=== PATIENT | male | born 1955 | race Caucasian/White ===

== ENCOUNTER 2019-05-01 00:27 | Day surgery (SDC) | payer MEDICARE, SELFPAY ==
[2019-04-24 12:51] VITALS: BMI 33.2
[2019-05-01 06:58] LABS: Glucose Point of Care 110 (65-105)
[2019-05-01] MEDS: LACTATED RINGERS 1,000 ML 150 ML IV CONT (07:00)
[2019-05-01 07:05] VITALS: BP 144/65; PULSE 51; RESP 16; TEMP 36.4; O2SAT 97; BMI 32.2
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
--- NOTE | 2019-05-01 07:23 | WPDGICN ---
Assessment and Plan Additional Plan This is a 63-year-old white male patient seen in evaluation at the request of Dr. Mahamed Petty. Patient presents for screening colonoscopy. In the past he has had colon polyps. He states his current weight appetite bowel movements are normal. He denies any blood in his stools. He denies abdominal pain. Family history is noncontributory. Past medical history is significant for hypertension. Gout. Chronic pain after a trauma. Hypertension. Medications include allopurinol. Amlodipine. Hydralazine. Diazepam. Hydrocortisone. Lisinopril. Hydrochlorothiazide. Metformin. Trazodone. Pregabalin. He has no stated drug allergies. Physical exam reveals him to be alert. Vital signs stable. HEENT exam unremarkable. Lungs are clear to auscultation and percussion. Heart is without murmur or extra sounds. Abdominal exam bowel sounds are present soft nontender with no hepatosplenomegaly. Digital external rectal exam is normal. Impression 1. Personal history of colon polyps. Past medical history of diabetes hypertension chronic pain gout all appear stable at this time Plan is for colonoscopy. Further recommendations may be given after endoscopy. GI Consult Note Consult date/time: 05/01/19 07:23 HPI: Zaid Zamarripa is a 63 year old male [facility] Past Medical History Medical History (Updated 05/01/19 @ 07:09 by Pradeep Beavers MD) Chronic pain due to injury Conductive hearing loss in left ear Head injury Hypertension Sleep apnea Surgical History Surgical History (Updated 03/27/19 @ 09:20 by Sarah Joe CMA) History of sinus surgery (~10/31/05) Family History Family History (Updated 08/14/18 @ 11:38 by DOCTOR UNKNOWN) Mother Patient's mother is in good health Family history of lung cancer Father Family history of cardiovascular disease Acute myocardial infarction Grandparent Diabetes mellitus Other Family history of malignant neoplasm of testis Social History Social History Smoking status: Never smoker Alcohol intake: current Meds Home Medications and Allergies Home Medications Medication Instructions Recorded Confirmed Type allopurinol 300 mg tablet 300 mg PO DAILY 03/27/19 04/24/19 History amlodipine 5 mg tablet 5 mg PO BID 03/27/19 04/24/19 History cyanocobalamin (vitamin B-12) 1,000 mcg PO DAILY 03/27/19 04/24/19 History 1,000 mcg capsule diazepam 10 mg tablet 5 mg PO HS PRN tablet 03/27/19 04/24/19 History hydrochlorothiazide 25 mg tablet 25 mg PO QAM 03/27/19 04/24/19 History multivitamin 1 tablet PO DAILY 03/27/19 04/24/19 History hydrocodone 5 mg-acetaminophen 325 1 tablet PO Q6H PRN #90 tablet 04/04/19 04/24/19 Rx mg tablet cholecalciferol (vitamin D3) 2,000 unit PO DAILY 04/24/19 04/24/19 History [Vitamin D3] hydralazine 25 mg PO BID 04/24/19 04/24/19 History lisinopril 40 mg PO QAM 04/24/19 04/24/19 History metformin 500 mg PO HS 04/24/19 04/24/19 History pregabalin 150 mg PO QAM 04/24/19 04/24/19 History trazodone 100 mg PO HS 04/24/19 04/24/19 History Allergies Allergy/AdvReac Type Severity Reaction Status Date / Time No Known Allergies Allergy Verified 05/01/19 07:02 Vital Signs Vital Signs - 24 hr 05/01/19 07:05 Temperature 36.4 C L Pulse Rate 51 L Respiratory Rate 16 Blood Pressure 144/65 H Pulse Oximetry 97
[2019-05-01 07:47] VITALS: BP 125/67; PULSE 50; RESP 15; O2SAT 97
[2019-05-01 07:57] VITALS: BP 123/68; PULSE 50; RESP 18; O2SAT 97
[2019-05-01 08:07] VITALS: BP 126/68; PULSE 50; RESP 16; O2SAT 97
== END 2019-05-01 08:16 | disposition home or self-care (01) ==
PROVIDERS: PCP Family Medicine; Visit Provider Internal Medicine Gastroenterology
PROC: 0DJD8ZZ Inspection of Lower Intestinal Tract, Via Natural or Artificial Opening Endoscopic (ICD-10-PCS; CPT 45378; principal; 2019-05-01 07:30)
DX: Z12.11 Encounter for screening for malignant neoplasm of colon (principal); K57.30 Diverticulosis of large intestine without perforation or abscess without bleeding; K64.8 Other hemorrhoids; Z86.010 Personal history of colon polyps; I10 Essential (primary) hypertension; E11.9 Type 2 diabetes mellitus without complications; M10.9 Gout, unspecified; G89.29 Other chronic pain; G47.30 Sleep apnea, unspecified; Z79.84 Long term (current) use of oral hypoglycemic drugs
CPT/HCPCS: G0105; J2704; J7120

== ENCOUNTER 2019-06-11 12:59 | Outpatient (CLI) | payer MEDICARE, SELFPAY ==
--- NOTE | 2019-06-11 13:04 | ECG_ITS ---
Measurements Intervals [place] Rate: 49 P: 66 IA: 171 QRS: 11 QRSD: 109 T: 32 QT: 423 QTc: 383 Interpretive Statements SINUS BRADYCARDIA BORDERLINE R WAVE PROGRESSION, ANTERIOR LEADS BASELINE ARTIFACT- I, III, AVR, AVL, AVF ABNORMAL ECG Electronically Signed On 06-11-2019 13:29:42 CDT by Luke Lazcano D.O.
[2019-06-11 13:40] LABS: Blood Urea Nitrogen 14 mg/dL (9-20); Carbon Dioxide 29 mmol/L (22-30); Chloride 104 mmol/L (98-107); Estimated Glomerular Filt Rate > 60; Glucose 137 mg/dL (75-110); Sodium 139 mmol/L (137-145)
== END 2019-06-11 13:00 | disposition home or self-care (01) ==
LOC: ANHSURGERY 13:04
PROVIDERS: Anesthesiology; PCP Family Medicine; Visit Provider Surgery
DX: Z01.818 Encounter for other preprocedural examination (principal); E11.9 Type 2 diabetes mellitus without complications; I10 Essential (primary) hypertension; R94.31 Abnormal electrocardiogram [ECG] [EKG]
CPT/HCPCS: 36415; 80048; 93005

== ENCOUNTER 2020-06-16 10:14 | Outpatient (CLI) | payer MEDICARE, SELFPAY ==
--- NOTE | 2020-06-16 10:20 | ECG_ITS ---
Measurements Intervals [place] Rate: 56 P: 75 DC: 173 QRS: 12 QRSD: 115 T: 28 QT: 417 QTc: 405 Interpretive Statements SINUS BRADYCARDIA INTRAVENTRICULAR CONDUCTION DELAY POOR R WAVE PROGRESSION, ANTERIOR LEADS BASELINE ARTIFACT- I, III, AVL, AVF BORDERLINE ECG Electronically Signed On 06-16-2020 10:57:20 CDT by Luke Lazcano D.O.
[2020-06-16 10:51] LABS: Anion Gap 3 mmol/L (8-16); Blood Urea Nitrogen 13 mg/dL (9-20); Calcium 9.4 mg/dL (8.4-10.2); Carbon Dioxide 30 mmol/L (22-30); Chloride 103 mmol/L (98-107); Estimated Glomerular Filt Rate > 60; Glucose 130 mg/dL (75-110); Sodium 136 mmol/L (137-145)
== END 2020-06-16 10:15 | disposition home or self-care (01) ==
LOC: ANHSURGERY 10:18
PROVIDERS: Anesthesiology; PCP Family Medicine; Visit Provider Surgery
DX: Z01.818 Encounter for other preprocedural examination (principal); I10 Essential (primary) hypertension; E11.9 Type 2 diabetes mellitus without complications; R00.1 Bradycardia, unspecified; I45.4 Nonspecific intraventricular block
CPT/HCPCS: 36415; 80048; 93005

== ENCOUNTER → 2020-06-19 01:21 | Outpatient (CLI) | payer MEDICARE, SELFPAY ==
[2020-06-19 19:13] LABS: SARS-CoV-2 RNA PCR Negative
== END ==
PROVIDERS: PCP Family Medicine; Visit Provider Surgery
DX: Z01.812 Encounter for preprocedural laboratory examination (principal); Z20.822 Contact with and (suspected) exposure to COVID-19
CPT/HCPCS: C9803; U0003; U0005

== ENCOUNTER 2020-06-23 03:08 | Day surgery (SDC) | payer MEDICARE, SELFPAY ==
[2020-06-14 15:44] VITALS: BMI 34.0
[2020-06-23] VITALS (10 sets, daily range): BP systolic 93–157; BP diastolic 46–79; PULSE 54–76; RESP 12–20; TEMP 36.1–36.4; O2SAT 94–99
[2020-06-23] MEDS: ACETAMINOPHEN 500 MG TABLET 1000 MG PO (10:56)
[2020-06-23] MEDS: KETOROLAC 15 MG/ML VIAL (*BKC) IV PUSH (10:57)
[2020-06-23] MEDS: LACTATED RINGERS 1,000 ML 30 ML IV CONT ×2 (11:00→13:30)
[2020-06-23 11:04] LABS: Glucose Point of Care 119 (65-105)
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
--- NOTE | 2020-06-23 11:32 | WPDHPUPDATE1 ---
History and Physical Update Update Date/Time: 06/23/20 11:32 History and Physical has been reviewed, including an updated exam of the patient. There are NO changes in the patient's condition. Risks, benefits, and alternatives have been discussed and questions answered. Patient agrees to proceed with procedure.
[2020-06-23] MEDS: ceFAZolin 2 GM/D5W 50 ML 2 GM/50 ML BAG IVPB (12:09)
[2020-06-23] MEDS: BUPIVACAINE/EPINEPHRINE 0.5% 30 ML VIAL INFILTRATE (12:31)
[2020-06-23 13:58] LABS: Glucose Point of Care 127 (65-105)
--- NOTE | 2020-06-23 14:37 | PM.PROC ---
Procedure Note - Detailed Date of procedure: 06/23/20 Pre-op diagnosis: ventral hernia Post-op diagnosis: same Procedure performed: Ventral hernia repair with Parietex ventral patch Description of procedure: Procedure as well as risks, benefits, and alternatives were discussed with the patient. Written consent was obtained and placed in chart prior to procedure. Patient was brought back to surgical suite. He was placed supine on operating table. He was then intubated by Anesthesia Department. His abdomen was prepped and draped in sterile fashion using chlorhexidine prep. 0.5% bupivacaine with epinephrine was infiltrated locally around the operative area. A 4 cm curvilinear incision was made just inferior to the umbilicus using a 15 blade scalpel. Electrocautery was used for hemostasis and for dissection down through the subcutaneous fat. Hernia sac was encountered and this was carefully freed up from surrounding subcutaneous fat using electrocautery. The hernia sac was freed up all the way down to the level of the fascia, and then it was transected using electrocautery. The hernia sac was excised and sent to the lab for pathology. The umbilical stalk was then lifted off of the fascia with electrocautery. The hernia defect was then measured. This was measuring approximately 12 mm. The decision was made to use a 6.6 cm Parietex ventral patch. The peritoneum was cleared under the fascia circumferentially around the hernia using blunt dissection and electrocautery. Once a wide enough pocket was created for the mesh, the mesh was then placed within this preperitoneal pocket and laid out flat centered on the hernia defect. The mesh appeared to be sitting in proper position. The mesh was then secured at the 4 corners using 0 Ethibond U-stitch trans fascial sutures. Once all 4 sutures were placed, the mesh was lifted up against the abdominal wall and appeared to be properly centered on the hernia defect. The fascia of the hernia defect was then reapproximated over the mesh using 0 Ethibond [id number] sutures. The 4 transfascial sutures were then tied down in place. The repair was inspected and appeared secure. 0.5% bupivacaine with epinephrine was infiltrated around the fascia and subcutaneous space. The umbilical stalk was then reapproximated to the fascia using a 3 0 Vicryl simple interrupted suture. The deep dermis was reapproximated using 3 0 Vicryl simple interrupted sutures, and then the skin was approximated using 4 Monocryl running subcuticular suture. Exofin glue was then applied on top. The patient was then awakened from anesthesia, extubated, and transferred to recovery. Implants: 6.6 cm Parietex Ventral Patch Anesthesia: local (0.5% bupivacaine with epinephrine) Surgeon: Heber Dial DO Estimated blood loss (mL): 5 Pathology: yes (Hernia sac) Complications: No immediate complications Condition: stable Disposition: same day Findings: This is a 64-year-old man who presents with symptomatic hernia that has present last couple years. He was noticing more symptoms with activity and the bulge had slightly increased in size over the past year. He was found to have a ventral periumbilical hernia that was located just inferior to the umbilicus and causing partial protrusion of the umbilical skin. Discussions were made with the patient about treatment options and decision was made to proceed with ventral hernia repair with mesh. Open ventral hernia repair with mesh was performed. Patient was found to have a 12 mm hernia defect located just inferior to the umbilical stalk. The hernia sac contained some omentum and preperitoneal fat. This was excised and sent to the lab for pathology. A preperitoneal pocket was then created to place our mesh and the peritoneal opening from the hernia sac was closed using 3 0 Vicryl [id number] suture. Once a wide enough pocket was then created I then placed a 6.6 cm Parietex ventral patch. This was
== END 2020-06-23 15:18 | disposition home or self-care (01) ==
PROVIDERS: PCP Family Medicine; Visit Provider Surgery
PROC: 0WQF0ZZ Repair Abdominal Wall, Open Approach (ICD-10-PCS; CPT 49560; principal; 2020-06-23 12:30)
DX: K43.9 Ventral hernia without obstruction or gangrene (principal); I10 Essential (primary) hypertension; E11.9 Type 2 diabetes mellitus without complications; G47.33 Obstructive sleep apnea (adult) (pediatric); G89.29 Other chronic pain; Z79.84 Long term (current) use of oral hypoglycemic drugs; Z79.891 Long term (current) use of opiate analgesic; E66.9 Obesity, unspecified; Z68.33 Body mass index [BMI] 33.0-33.9, adult
CPT/HCPCS: 49560; 49568; 82948; 88300; A9270; C1781; J0690; J1100; J1885; J2250; J2405; J2704; J3010; J7120

== ENCOUNTER → 2022-10-19 13:49 | Outpatient (CLI) | payer MEDICARE, SELFPAY ==
--- NOTE | ~2022-10-19 | CT_ITS ---
EXAMINATION: CT sinus wo con DATE: 10/19/2022 14:14 INDICATION: Acute recurrent maxillary sinusitis. History of sinus surgery approximately 14 years ago TECHNIQUE: Computed tomography (CT) of the paranasal sinuses was performed without contrast. Iterativ e reconstruction technique was employed. Exam dose: 270.28 mGy-cm total exam DLP. COMPARISON: 12/19/2014 CT brain 09/25/2005 CT sinuses FINDINGS: The nasal turbinates are symmetrically prominent in size. Chronic small mucous retention cyst at the right lateral frontoethmoid area, stable since 09/25/2005. Mildly comparison thickening at the floor of the left maxillary sinus and the anterosuperior right sp henoid sinus. The mastoid air cells are normally developed and aerated bilaterally. IMPRESSION: Little interval change since 2005 Reviewed, dictated and finalized at [facility]. Reviewed, dictated and finalized at [facility].
== END ==
PROVIDERS: PCP Family Medicine; Visit Provider Otolaryngology
DX: J01.01 Acute recurrent maxillary sinusitis (principal)
CPT/HCPCS: 70486

== ENCOUNTER 2022-10-20 08:02 | Outpatient (CLI) | payer MEDICARE, SELFPAY | END 2022-10-20 08:03 | disposition home or self-care (01) | LOC: ANHAUDASC 08:03 | PROVIDERS: PCP Family Medicine; Visit Provider Otolaryngology | DX: H65.499 Other chronic nonsuppurative otitis media, unspecified ear (principal); H69.90 Unspecified Eustachian tube disorder, unspecified ear; J01.01 Acute recurrent maxillary sinusitis | CPT/HCPCS: 92557; 92567 ==

== ENCOUNTER 2023-03-02 10:26 | Outpatient (CLI) | payer MEDICARE, SELFPAY ==
--- NOTE | 2023-03-02 10:53 | ECG_ITS ---
Measurements Intervals [place] Rate: 60 P: 63 NE: 167 QRS: 17 QRSD: 110 T: 29 QT: 425 QTc: 426 Interpretive Statements SINUS RHYTHM WITHIN NORMAL LIMITS COMPARED TO ECG 06/16/2020 10:54:30 NO SIGNIFICANT CHANGE Electronically Signed On 03-02-2023 13:33:19 [employer]SP[employer]ER [employer]RARY MANAGER by Mahamed Guzman M.D.
[2023-03-02 11:25] LABS: Anion Gap 11 mmol/L (8-16); Blood Urea Nitrogen 12 mg/dL (9-20); Carbon Dioxide 24 mmol/L (22-30); Chloride 104 mmol/L (98-107); Estimated Glomerular Filt Rate > 60; Glucose 125 mg/dL (65-110); Potassium 3.9 mmol/L (3.4-5.0); Sodium 139 mmol/L (137-145)
== END 2023-03-02 10:27 | disposition home or self-care (01) ==
LOC: ANHSURGERY 10:31
PROVIDERS: Anesthesiology; PCP Family Medicine; Visit Provider Otolaryngology
DX: Z01.818 Encounter for other preprocedural examination (principal); I10 Essential (primary) hypertension; E11.9 Type 2 diabetes mellitus without complications
CPT/HCPCS: 36415; 80048; 93005

== ENCOUNTER 2023-03-06 00:29 | Day surgery (SDC) | payer MEDICARE, SELFPAY ==
--- NOTE | 2023-02-27 09:09 | PC.NURSE ---
Report to the Outpatient Waiting Room, entrance under the green pavilion located off [facility], at time __0645 on date _03/06/23 . Planned Procedure Time: __0845 . Time changes happen often and if your time is changed the preop area will call you the afternoon before. - You and your visitor will be asked to self-screen and do not enter if you have any COVID symptoms. - A mask is optional within the hospital at this time. Patients may have clear liquids (water, carbonated beverages, clear teas, apple juice) until 3 hours prior to surgery with a maximum of 20 ounces. - No food from midnight until time of surgery - Infants may have breast milk until 4 hours before surgery, infant formula 6 hours prior to surgery. - Children will be allowed to drink immediately following surgery. If applicable, please bring a bottle or sippy cup to assist with drinking. Juice, water, soda, and popsicles are readily available. For infants on formula, please bring formula the day of surgery. Pacifiers are allowed. Take the following medications with a SIP of water the morning of surgery: ___AMLODIPINE,,HYDRALAZINE,,PREGABALIN ,HYDROCODONE IF NEEDED DO NOT STOP ANY OF YOUR OTHER PRESCRIPTION MEDICATIONS PRIOR TO SURGERY ?EXCEPT THE FOLLOWING Medications to discontinue per physician ___ALL VITAMINS AND SUPPLEMENTS 3 DAYS PRE OP .LAST DOSE 03/02/23 Please no make-up, nail ecuadorean, hairspray, perfume, deodorant, or body powder the day of surgery. No jewelry (including any body piercings) or valuables the day of surgery, leave them at home. Please take a shower or bath the night before, or the morning of, surgery with an antibacterial soap. Wear comfortable, loose fitting clothing. Children are encouraged to wear pajamas. - Jewelry must be removed prior to entering the operating room. Rings and piercings that are not removed may be cut off. - The hospital will not accept responsibility for valuables. - Please leave all valuables, including medications, at home the day of surgery. If you are going home after surgery, a licensed driver's license examiner must drive you home. - NO public transportation without another adult if you receive anesthesia. - We recommend that an adult stay with you for 24 hours following discharge. - We also recommend that you do not drive, make important decision, drink alcoholic beverages, or take any drugs that were not prescribed by your health care provider for at least 24 hours after your discharge time. For Pediatric surgeries, we recommend two adults accompany the child home. Follow any additional instructions given to you from your surgeon. If you or anyone in your household have experienced Covid symptoms in the past week, please notify your surgeon or the nurse liaison at the phone number below for possible testing. Telephone instructions given to ____PATIENT and asked if any additional questions and then verbalized understanding. Patient advised to call surgeon office or pre surgery nurse liaison [phone] if any additional questions.
[2023-02-27 09:21] VITALS: BMI 34.0
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
[2023-03-06] VITALS (12 sets, daily range): BP systolic 133–166; BP diastolic 64–97; PULSE 57–83; RESP 14–18; TEMP 36.4–36.6; O2SAT 92–96
--- NOTE | 2023-03-06 07:17 | WPDHPUPDATE1 ---
History and Physical Update Update Date/Time: 03/06/23 07:17 History and Physical has been reviewed, including an updated exam of the patient. There are NO changes in the patient's condition. Risks, benefits, and alternatives have been discussed and questions answered. Patient agrees to proceed with procedure.
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
[2023-03-06 07:56] LABS: Glucose Point of Care 126 mg/dl (65-105)
[2023-03-06] MEDS: LACTATED RINGERS 1,000 ML 30 ML IV CONT ×2 (08:00→12:23)
[2023-03-06] MEDS: ACETAMINOPHEN 500 MG TABLET 1000 MG PO (08:00)
[2023-03-06] MEDS: ceFAZolin 2 GM/D5W 50 ML 2 GM/50 ML BAG IVPB (09:09)
[2023-03-06] MEDS: OXYMETAZOLINE HCL 0.05% NAS 15 ML BTL (*BKC) 1 SPRAY NASAL (09:29)
[2023-03-06] MEDS: LIDO 1%/EPINEPHRINE 1:100,000 50 ML VIAL INFILTRATE (09:30)
[2023-03-06 12:38] LABS: Glucose Point of Care 187 mg/dl (65-105)
--- NOTE | 2023-03-06 12:49 | W.PM.PROC2 ---
Procedure Note - Detailed Date of Procedure 03/06/23 Pre-op Diagnosis Rec Sinusitis, Nasal Obstruc, Septal Dev (cont) Post-op Diagnosis Same Procedure Performed Endoscopic assisted septoplasty, bilateral inferior turbinate reduction with outfracture, image guided endoscopic bilateral maxillary antrostomies right-sided total ethmoidectomy right-sided sphenoidotomy left-sided anterior ethmoidectomy Surgeon Cornelio Dominguez MD Anesthesia General Indications see above Findings polypoid edema in the lower sinuses kind of inferior portions of ethmoid max is. The max as were scarred shut left with recirculation I am even the right was really small. Narrow passages I had to everything together Description of Procedure patient identified consent verified preop. Patient brought to the operating. Time-out performed. General anesthesia induced endotracheal tube secure. Patient prepped reposition residual confirm 2nd time-out performed. Image guidance initiating confirmed. Afrin-soaked pledgets were placed bilaterally then removed. Left deviation both high and low. A total of what 15-18 cc 1% lidocaine 1 100,000 parts epinephrine injected into the bilateral nasal septum inferior turbinates. Laurie incision made left-sided difficult to elevate the flap patient has in fact had a previous septoplasty. Nasal septal flaps elevated deviated septum removed with David forceps Nicholas Hammonds forceps and osteotome. A lot of caudal work done. Septum quilted shot including the turbinates Jonathan incision closed for erupted 5 0 fast gut sutures. Only 1 small right-sided perforation turbinates lateralized sorry turbinates medialized using [place] there again quilted to the septum. Maxillary antrostomies performed the image guidance straight through cut double ball tip probe back biter and microdebrider. Ethmoids performed with [place] image guidance frontal instruments actually ethmoids 1 high. And microdebrider. Septum not injured orbit not injured skull base not violated anterior ethmoidal arteries not violated. Right sphenoidotomy performed with [place] straight through cut and sphenoid punch. As well as microdebrider. Wounds copiously irrigated. No packs placed bilaterally. Again the septum and turbinates were quilted with a 4-0 straight [place] plain gut. Boils placed ensured to be lateral to the middle turbinates quilted closed or sorry mattressed anterior 2. Blood loss about 100 cc. No active bleeding at the end procedure. Slight damage the left inferior turbinate reduction I should add that the inferior turbinates reduced in the submucosal plane using [place] 2.5 microdebrider and outfractured with [place] elevator. Afrin applied the left inferior turbinate. Patient tolerated procedure well no complications cares anesthesiology. Patient taken to PACU. Estimated Blood Loss -100.0
[2023-03-06] MEDS: fentaNYL CITRATE INJ (*CRX) 100 MCG/2 ML VIAL 25 MCG IV PUSH (13:09)
[2023-03-06] MEDS: oxyCODONE HCL (*CRX) 5 MG TAB IR PO (13:54)
== END 2023-03-06 14:47 | disposition home or self-care (01) ==
PROVIDERS: PCP Family Medicine; Visit Provider Otolaryngology
PROC: (CPT 30520; principal; 2023-03-06 08:45)
PROC: (CPT 30520; 2023-03-06 08:45)
DX: J34.2 Deviated nasal septum (principal); J33.9 Nasal polyp, unspecified; J32.9 Chronic sinusitis, unspecified; J34.3 Hypertrophy of nasal turbinates; I10 Essential (primary) hypertension; E66.9 Obesity, unspecified; Z68.35 Body mass index [BMI] 35.0-35.9, adult
CPT/HCPCS: 30520; 30140; 31256; 31257; 82948; A9270; J0690; J1100; J2250; J2405; J2704; J3010; J7040; J7120

== ENCOUNTER 2023-06-27 09:31 | Outpatient (CLI) | payer MEDICARE, SELFPAY ==
[2023-06-27 18:55] LABS: Alanine Aminotransferase 30 U/L (6-50); Albumin Level 4.3 g/dL (3.5-5.1); Alkaline Phosphatase 72 U/L (38-126); Anion Gap 7 mmol/L (4-12); Aspartate Amino Transferase 36 U/L (17-59); Bilirubin,Total 0.6 mg/dL (0.2-1.3); Blood Urea Nitrogen 13 mg/dL (9-20); Calcium 10.1 mg/dL (8.4-10.2); Carbon Dioxide 29 mmol/L (22-30); Chloride 102 mmol/L (98-107); Cholesterol 173 mg/dL (0-200); Estimated Glomerular Filt Rate > 60; Glucose 115 mg/dL (65-110); HDL Direct 57 mg/dL; Potassium 3.5 mmol/L (3.4-5.0); Sodium 138 mmol/L (137-145); Triglycerides 81 mg/dL (<150); Uric Acid 4.1 mg/dL (3.5-8.5)
[2023-06-27 19:06] LABS: LDL Cholesterol Direct 99 mg/dL
[2023-06-27 19:42] LABS: Hemoglobin A1C 5.7 % (<5.7)
== END 2023-06-27 09:32 | disposition home or self-care (01) ==
LOC: ANHGOSHLAB 09:34
PROVIDERS: PCP Family Medicine; Visit Provider Family Medicine
DX: E78.5 Hyperlipidemia, unspecified (principal); M10.9 Gout, unspecified; Z79.899 Other long term (current) drug therapy
CPT/HCPCS: 36415; 80053; 80061; 83036; 84550